=== PATIENT | female | born 1970 | race Caucasian/White ===

== ENCOUNTER → 2021-09-30 09:34 | Outpatient (BNV) | payer BC, SELFPAY | PROVIDERS: PCP Internal Medicine; Referring Provider Internal Medicine; Visit Provider Internal Medicine | DX: D50.9 Iron deficiency anemia, unspecified (principal) | CPT/HCPCS: 99204; 99213; 99214 ==

== ENCOUNTER 2021-10-25 07:36 | Outpatient (REF) | payer BC, SELFPAY | END 2021-10-25 07:37 | disposition home or self-care (01) | LOC: HO.MDS 07:36 | PROVIDERS: Visit Provider Internal Medicine | DX: D50.9 Iron deficiency anemia, unspecified (principal) | CPT/HCPCS: 96365; J1756 ==

== ENCOUNTER 2021-11-05 07:43 | Outpatient (REF) | payer BC, SELFPAY | END 2021-11-05 07:44 | disposition home or self-care (01) | LOC: HO.MDS 07:43 | PROVIDERS: Visit Provider Internal Medicine | DX: D50.9 Iron deficiency anemia, unspecified (principal) | CPT/HCPCS: 96365; J1756 ==

== ENCOUNTER 2021-11-08 09:24 | Outpatient (REF) | payer BC, SELFPAY | END 2021-11-08 09:25 | disposition home or self-care (01) | LOC: HO.MDS 09:24 | PROVIDERS: Visit Provider Internal Medicine | DX: D50.9 Iron deficiency anemia, unspecified (principal) | CPT/HCPCS: 96365; J1756; Q0163 ==

== ENCOUNTER 2022-07-13 13:49 | Outpatient (REF) | payer BC, SELFPAY | END 2022-07-13 13:50 | disposition home or self-care (01) | LOC: HO.MDS 13:49 | PROVIDERS: Visit Provider Internal Medicine | DX: D50.9 Iron deficiency anemia, unspecified (principal) | CPT/HCPCS: 96361; 96365; J1200; J1756 ==

== ENCOUNTER 2022-07-22 08:26 | Outpatient (REF) | payer BC, SELFPAY | END 2022-07-22 08:27 | disposition home or self-care (01) | LOC: HO.MDS 08:26 | PROVIDERS: Visit Provider Internal Medicine | DX: D50.9 Iron deficiency anemia, unspecified (principal) | CPT/HCPCS: 96365; 96375; J1200; J1756 ==

== ENCOUNTER 2022-07-29 08:20 | Outpatient (REF) | payer BC, SELFPAY | END 2022-07-29 08:21 | disposition home or self-care (01) | LOC: HO.MDS 08:20 | PROVIDERS: Visit Provider Internal Medicine | DX: E61.1 Iron deficiency (principal) | CPT/HCPCS: 96365; 96375; J1200; J1756 ==